=== PATIENT | male | born 1970 | race African-American/Black ===

== ENCOUNTER 2018-06-30 12:28 | Emergency (ER) | payer OTHER ==
[~2018-06-30] VITALS: Ht 177.8 cm; Wt 136.1 kg
[~2018-06-30 12:28] MED LIST: BUTALB-APAP-CA1 EACH PO; MOBIC7.5 MG PO
[2018-06-30] MEDS ORDERED: NAPROSYN500 MG PO (13:14)
[2018-06-30 15:06] VITALS: BP 148/86
== END 2018-06-30 14:40 | disposition home or self-care (01) ==
LOC: ER 12:28
DX: M79.671 Pain in right foot (principal); S09.90XA Unspecified injury of head, initial encounter; W19.XXXA Unspecified fall, initial encounter; Y93.89 Activity, other specified; Y92.89 Other specified places as the place of occurrence of the external cause; Y99.8 Other external cause status; Z88.0 Allergy status to penicillin

== ENCOUNTER 2020-07-06 14:39 | Emergency (ER) | payer OTHER ==
[~2020-07-06] VITALS: Ht 177.8 cm; Wt 136.1 kg
[~2020-07-06 14:39] MED LIST changes: +NAPROSYN500 MG PO
[2020-07-06] MEDS ORDERED: MELOXICAM15 MG PO (18:05)
[2020-07-06 19:12] VITALS: BP 155/108
== END 2020-07-06 19:13 | disposition home or self-care (01) ==
LOC: ER 14:39
DX: M79.671 Pain in right foot (principal); M25.571 Pain in right ankle and joints of right foot; Z79.899 Other long term (current) drug therapy; Z80.0 Family history of malignant neoplasm of digestive organs

== ENCOUNTER 2020-12-20 05:00 | Emergency (ER) | payer OTHER ==
[~2020-12-20] VITALS: Ht 177.8 cm; Wt 136.1 kg
[~2020-12-20 05:00] MED LIST changes: +MELOXICAM15 MG PO
[2020-12-20 06:01] LABS: ABSOLUTE NEUTROPHILS 6.5 thou/uL (1.4-8.2); EOSINOPHILS 6.3 % (0.0-3.0); HEMOGLOBIN 13.7 gm/dL (14.0-18.0); LYMPHOCYTES 19.1 % (24.0-44.0); MCH 22.3 pg (26.0-34.0); MCHC 31.7 g/dL (28.0-37.0); MCV 70.3 fL (80.0-100.0); MONOCYTES 8.8 % (1.0-8.0); PLATELET COUNT 198 thou/uL (150-400); POLYS 64.8 % (36.0-66.0); RBC 6.12 mil/uL (4.50-6.00); RDW 14.2 % (10.5-14.5)
[2020-12-20 06:07] LABS: ANION GAP 8 mmol/L (7-16); BUN 18 mg/dL (7-18); CALCIUM 8.4 mg/dL (8.5-10.1); CHLORIDE 103 mmol/L (98-107); CO2 29 mmol/L (21-32); CREATININE 1.3 mg/dL (0.7-1.3); GLUCOSE 150 mg/dL (74-106); POTASSIUM 3.9 mmol/L (3.5-5.1); SODIUM 140 mmol/L (136-145)
[2020-12-20 06:15] LABS: APTT 25.5 Seconds (24.5-32.8); PROTIME 10.7 Seconds (9.3-11.4)
[2020-12-20 06:17] LABS: ALBUMIN 3.7 g/dL (3.4-5.0); LIPASE 93 U/L (73-393); SGOT 22 U/L (15-37); SGPT 39 U/L (16-63); TOTAL BILIRUBIN 0.3 mg/dL (0.2-1.0); TROPONIN-I <0.06 ng/mL (<0.06)
--- NOTE | 2020-12-20 07:03 | EKG ---
[place] [address] [facility] [place] [address] ELECTROCARDIOGRAM REPORT Name: HERMANNGILBERT JR Room #: REG [facility]#: [id number] Admission: 12/20/20 Attend Phys: Discharge: Date of : 70 Report #: [id number] [facility] Test Date: 2020-12-20 Test Time: 05:04:18 Pat Name: GILBERT MCCRARY Department: Room: Gender: M Office Asst: SUSAN : 1970 Requested By: Savanna Ro Order Number: [id number] MD: Grady Belle Measurements Intervals [place] Rate: 75 P: 13 AL: 148 QRS: -50 QRSD: 77 T: 18 QT: 408 QTc: 456 Interpretive Statements Sinus rhythm Probable left atrial enlargement Left anterior fascicular block Abnormal R-wave progression, early transition Borderline T wave abnormalities No previous ECG available for comparison Electronically Signed On 12-20-2020 7:03:48 CDT by Grady Belle [email or web address] <ELECTRONICALLY SIGNED> By: Grady Belle MD, [facility] 12/20/20 0703 [id number] Grady Belle MD, FACC /EPI
[2020-12-20] MEDS ORDERED: LISINOPRIL10 MG PO (08:00)
[2020-12-20] MEDS ORDERED: CLEOCIN HCL300 MG PO (08:00)
[2020-12-20 08:10] VITALS: BP 153/98
--- NOTE | 2020-12-20 16:24 | EKG ---
[facility] [place] [address] ELECTROCARDIOGRAM REPORT Name: DARCI MCCRARYROSA MEDLEY Room #: [facility]#: [id number] Admission: 12/20/20 Attend Phys: Discharge: 12/20/20 Date of : 70 Report #: [id number] [facility] Test Date: 2020-12-20 Test Time: 07:43:18 Pat Name: GILBERT MCCRARY Department: Room: Gender: Electroplating Laborer: : 1970 Requested By: Augusto Sparks Order Number: [id number] MD: Yoni Black Measurements Intervals [place] Rate: 69 P: 16 TN: 153 QRS: -43 QRSD: 78 T: 7 QT: 400 QTc: 429 Interpretive Statements Sinus rhythm Left axis deviation Borderline T wave abnormalities Compared to ECG 12/20/2020 05:04:18 No significant change was found Electronically Signed On 12-20-2020 16:23:48 CDT by Yoni Black [email or web address] <ELECTRONICALLY SIGNED> By: Yoni Black MD, [facility] 12/20/20 1623 0743 0743 Yoni Black MD, FACC /EPI
== END 2020-12-20 08:10 | disposition still patient (30) ==
LOC: ER 05:00
PROVIDERS: Emergency Medicine
DX: R07.9 Chest pain, unspecified (principal); K08.89 Other specified disorders of teeth and supporting structures; Z88.0 Allergy status to penicillin

== ENCOUNTER 2021-02-01 08:42 | Emergency (ER) | payer OTHER ==
[~2021-02-01] VITALS: Ht 177.8 cm; Wt 136.1 kg
[~2021-02-01 08:42] MED LIST changes: +CLEOCIN HCL300 MG PO; +LISINOPRIL10 MG PO
[2021-02-01] MEDS ORDERED: LIDODERM1 EACH TOP (10:10)
[2021-02-01 11:05] VITALS: BP 163/101
== END 2021-02-01 11:09 | disposition home or self-care (01) ==
LOC: ER 08:42
DX: M25.512 Pain in left shoulder (principal); Z88.0 Allergy status to penicillin; Z79.899 Other long term (current) drug therapy; X50.0XXA Overexertion from strenuous movement or load, initial encounter; Y93.89 Activity, other specified; Y92.69 Other specified industrial and construction area as the place of occurrence of the external cause; Y99.9 Unspecified external cause status

== ENCOUNTER 2021-10-09 09:15 | Emergency (ER) | payer OTHER ==
[~2021-10-09] VITALS: Ht 177.8 cm; Wt 138.3 kg
[~2021-10-09 09:15] MED LIST changes: +LIDODERM1 EACH TOP
[2021-10-09 09:21] VITALS: BP 151/101
== END 2021-10-09 16:10 | disposition home or self-care (01) ==
LOC: ER 09:15
PROVIDERS: Emergency Medicine
DX: U07.1 COVID-19 (principal); Z79.899 Other long term (current) drug therapy; Z88.0 Allergy status to penicillin